=== PATIENT | female | born 1995 | race Caucasian/White ===

== ENCOUNTER 2017-07-02 12:37 | Emergency (ER) | payer SELFPAY ==
[~2017-07-02] VITALS: Ht 154.9 cm; Wt 89.3 kg
[~2017-07-02 12:37] MED LIST: CODE118S PO; D-ME118S6 PO
[2017-07-02 12:40] VITALS: Ht 154.9 cm; Wt 89.3 kg
[2017-07-02] MEDS ORDERED: SODI126M NASAL (13:41)
[2017-07-02] MEDS ORDERED: FLUT9.9S NASAL (13:41)
[2017-07-02] MEDS ORDERED: IBUP-1542 PO (13:41)
--- NOTE | 2017-07-02 13:51 | ERD ---
ER Documentation Chief Complaint Chief Complaint Left ear pain x 1 week. was having sore throat prior HPI 22-year-old female complaining of left ear pain. Patient stated that her left ear feels like "clogged" for the last 1.5 weeks. She was using over-the- counter ear pain drops without relief. Patient reports nasal congestion and sinus pain for last 3 weeks. Denies fever or chills. Denies shortness of breath. ROS All systems reviewed and are negative except as per history of present illness. Medications Home Meds Active Scripts Fluticasone Propionate (Flonase Allergy Relief) 9.9 Ml [place].susp, 1 SPRAY NASAL BID, #1 BOTTLE TO EACH NOSTRIL Prov:DG VAZQUEZ NP 07/02/17 Sodium Chloride (Saline Nasal Mist) 126 Ml Mist, 2 SPRAY NASAL Q2H Y for NASAL CONGESTION, #1 BOTTLE Prov:DG VAZQUEZ NP 07/02/17 Ibuprofen* (Motrin*) 600 Mg Tab, 600 MG PO Q6H Y for PAIN AND OR ELEVATED TEMP, #30 TAB Prov:DG VAZQUEZ NP 07/02/17 Promethazine w/Codeine* (Phenergan w/Codeine* Syrup) 473 Ml Syrup, 5 ML PO Q6H Y for COUGH for 14 Days, ML Prov:DEBRA WILSON NP 06/07/15 Dextromethorphan Hb-Promethazine Hcl (Promethazine DM Syrup) 180 Ml Syrup, 5 ML PO Q6H Y for COUGH, #4 OZ Prov:DEBRA WILSON NP 06/07/15 Allergies Allergies: Coded Allergies: No Known Allergy (Unverified , 06/06/15) PMhx/Soc History of Surgery: No Anesthesia Reaction: No Hx Neurological Disorder: No Hx Respiratory Disorders: No Hx Cardiac Disorders: No Hx Psychiatric Problems: No Hx Miscellaneous Medical Probl: No Hx Alcohol Use: No Hx Substance Use: No Hx Tobacco Use: No Physical Exam Vitals Vital Signs Date Time Temp Pulse Resp B/P Pulse Ox O2 Delivery O2 Flow Rate FiO2 07/02/17 12:40 98.7 110 20 134/82 98 Physical Exam General: Well-developed, well-nourished, conscious and coherent, in no distress Skin: Warm and dry without rash, good texture and turgor Head: Normocephalic without evidence of trauma Eyes: Sclera and conjunctivae normal; pupils equal, round, and reactive to light; extraocular movements are intact Ears: Canals are patent. Tympanic membrane clear on the right, left TM mildly erythematous and sunken. Nose/Face: Nasal mucosa erythematous and swollen. No frontal or maxillary sinuses tenderness on percussion Mouth/throat: Mucous membranes are moist. Posterior pharynx clear without erythema or exudates Neck: Supple without meningismus or adenopathy. Carotids are equal. Trachea midline. No bruits or JVD Chest: Normal AP diameter. Good expansion without retractions. Nontender. Lungs are clear to auscultate bilaterally with good tidal volume Heart: Regular rate and rhythm. No murmur, rub, or gallops heard Extremities: Full range of motion. Good strength bilaterally. No clubbing, cyanosis, or edema. Peripheral pulses are intact. Sensation intact Neuro: Alert and oriented 4, GCS 15. Cranial nerves grossly intact. Motor and sensory exams nonfocal. Moves all extremities. Speech clear. Gait normal Procedures/MDM Well-appearing 24-year-old female presented ED was left ear pain. History exam findings are consistent with serous otitis media secondary to nasal congestion. Her nasal congestion likely due to either viral illness, or allergic rhinitis. No sign of acute or chronic sinusitis. I doubt mastoiditis. Patient appears well, stable for discharge and outpatient management. Medical decision making shared with patient and family. Education provided to patient and family. Patient and family expressed understanding of the plan. Medications on discharge: Saline nasal spray, Flonase, ibuprofen. Follow-up: Primary care provider in 2-3 days or return to ED if worse. Disclaimer: Inadvertent spelling and grammatical errors are likely due to EHR/ dictation software use and do not reflect on the overall quality of patient care. Also, please note that the electronic time recorded on this note does not necessarily reflect the actual time of the patient encounter. Departure Diagnosis: Primary Impression: Serous otitis media Chronicity: acute Laterality: left Recurrence: not specified as recurrent Qualified Code: H65.02 - Acute serous otitis media of left ear, recurrence not specified Additional Impression: Nasal congestion Condition: Stable Patient Instructions: Allergic Rhinitis, Serous Otitis Media Without Infection [Child] Referrals: [facility] YOU HAVE RECEIVED A MEDICAL SCREENING EXAM AND THE RESULTS INDICATE THAT YOU DO NOT HAVE A CONDITION THAT REQUIRES URGENT TREATMENT IN THE EMERGENCY DEPARTMENT. FURTHER EVALUATION AND TREATMENT OF YOUR CONDITION CAN WAIT UNTIL YOU ARE SEEN IN YOUR DOCTORS OFFICE WITHIN THE NEXT 1-2 DAYS. IT IS YOUR RESPONSIBILITY TO MAKE AN APPOINTMENT FOR FOLOW-UP CARE. IF YOU HAVE A PRIMARY DOCTOR --you should call your primary doctor and schedule an appointment IF YOU DO NOT HAVE A PRIMARY DOCTOR YOU CAN CALL OUR PHYSICIAN REFERRAL HOTLINE AT IF YOU CAN NOT AFFORD TO SEE A PHYSICIAN YOU CAN CHOSE FROM THE FOLLOWING [facility] [address] [facility]. [facility] [address] [facility] [facility] [address] [facility] [facility] [address] [facility] [facility] [address]. [facility]. [address] Additional Instructions: Call your primary care doctor TOMORROW for an appointment during the next 2-3 days.See the doctor sooner or return here if your condition worsens before your appointment time. DG VAZQUEZ NP Jul 02, 2017 13:51
== END 2017-07-02 14:16 | disposition home or self-care (01) ==
LOC: FTE 12:37
DX: H65.02 Acute serous otitis media, left ear (principal); R09.81 Nasal congestion
CPT/HCPCS: 99283